=== PATIENT | female | born 1940 | race Caucasian/White ===

== ENCOUNTER 2021-10-28 09:44 | Emergency (ER) | payer MEDICARE, OTHER ==
[~2021-10-28] VITALS: Ht 172.7 cm; Wt 49.0 kg
--- NOTE | 2021-10-28 10:17 | NUR ---
Report received from MICHAEL Mejía at [facility].
--- NOTE | 2021-10-28 10:45 | NUR ---
Patient given drink of water.
--- NOTE | 2021-10-28 11:17 | NUR ---
Patient given water.
[2021-10-28] MEDS ORDERED: traMADol 50MG tablet PO ONE ×2 (11:20→11:45)
[2021-10-28] MEDS ORDERED: TRAM50TA2 PO (11:20)
--- NOTE | 2021-10-28 16:02 | NUR ---
Report called to MICHAEL Mejía at [facility]. [facility]; [facility] arrange [facility] for [facility]. [facility]person: Eliza [phone]; [phone]; [phone]
--- NOTE | 2021-10-28 16:40 | NUR ---
[facility] called; [facility] here to [facility] patient within the hour.
[2021-10-28 17:28] VITALS: BP 130/67
== END 2021-10-28 17:30 ==
LOC: ER 09:45
DX: S32.89XA Fracture of other parts of pelvis, initial encounter for closed fracture (principal); S42.221A 2-part displaced fracture of surgical neck of right humerus, initial encounter for closed fracture; S09.90XA Unspecified injury of head, initial encounter; F03.90 Unspecified dementia, unspecified severity, without behavioral disturbance, psychotic disturbance, mood disturbance, and anxiety; I10 Essential (primary) hypertension; E03.9 Hypothyroidism, unspecified; M19.90 Unspecified osteoarthritis, unspecified site; Z86.2 Personal history of diseases of the blood and blood-forming organs and certain disorders involving the immune mechanism; Z79.899 Other long term (current) drug therapy; Z91.041 Radiographic dye allergy status; Z88.8 Allergy status to other drugs, medicaments and biological substances; Z79.82 Long term (current) use of aspirin; W19.XXXA Unspecified fall, initial encounter; Y93.89 Activity, other specified; Y92.89 Other specified places as the place of occurrence of the external cause
CPT/HCPCS: 70450; 72125; 73030; 73502; 99284